=== PATIENT | female | born 1965 | race American Indian/Alaskan Native ===

== ENCOUNTER 2017-06-14 10:49 | Outpatient (CLI) | payer OTHER ==
--- NOTE | 2017-06-14 14:29 | XRay Report ---
Right shoulder: Pain. The shoulder joint appears generally unremarkable. The articular margins are smooth and the joint spaces preserved. The bones are well-mineralized. There is good alignment. There is erosion of the distal clavicle at the a.c. joint. The acromial side appears relatively intact. No swelling noted. 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 Other possibilities would include hyperparathyroidism in the proper clinical setting.
== END 2017-06-14 10:50 | disposition home or self-care (01) ==
LOC: SPVIMAG 10:49
PROVIDERS: ATTEND Family Medicine
DX: M25.511 Pain in right shoulder (principal)